=== PATIENT | female | born 2000 | race Caucasian/White ===

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

== ENCOUNTER 2020-11-16 15:45 | Emergency (ER) | payer OTHER | END 2020-11-16 16:17 | disposition left against medical advice (07) | LOC: JP.ED 15:45 | DX: Z53.21 Procedure and treatment not carried out due to patient leaving prior to being seen by health care provider (principal) ==

== ENCOUNTER 2020-11-17 13:51 | Emergency (ER) | payer MEDICAID, OTHER ==
[2020-11-17 14:47] VITALS: BP 119/82; PULSE 89
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
== END 2020-11-17 17:00 | disposition home or self-care (01) ==
LOC: JP.ED 13:51
DX: Z04.41 Encounter for examination and observation following alleged adult rape (principal); Z72.0 Tobacco use
CPT/HCPCS: 99282; 99284